=== PATIENT | male | born 1970 | race Caucasian/White ===

== ENCOUNTER 2018-01-03 09:01 | Emergency (ER) | payer OTHER ==
[2018-01-03 09:14] VITALS: BP 137/89; PULSE 120; TEMP 98.1; BMI 29.0
[2018-01-03] MEDS ORDERED: DIPHTH,PERTUSS(ACELL),TET 0.5 ML DISP.SYRIN IM ONE (09:19)
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
[2018-01-03 09:49] LABS: BASO % 0.6 % (0-2.0); EOS % 0.5 % (0-4.5); HEMOGLOBIN 16.3 GM/dL (11.7-16.9); LYMPH % 15.3 % (8-40); MCH 28.8 pg (25.7-33.7); MCHC 33.2 g/dl (32.0-35.9); MEAN CELL VOLUME 86.9 fl (80-96); MEAN PLT VOLUME 7.3 fl (7.5-11.1); MONO % 4.9 % (3.8-10.2); NEUT % 78.7 % (42.8-82.8); PLATELET COUNT 232 K/MM3 (134-434); RBC 5.64 M/mm3 (4.00-5.60); RDW 13.2 % (11.9-15.9); WHITE BLOOD COUNT 8.6 K/mm3 (4.0-10.0)
[2018-01-03 10:28] LABS: ALBUMIN 4.5 g/dl (3.4-5.0); ALK PHOS 56 U/L (45-117); ANION GAP 8 MMOL/L (8-16); BILIRUBIN,TOTAL 0.8 mg/dL (0.2-1); BLOOD UREA NITROGEN 17 mg/dL (7-18); CALCIUM 9.7 mg/dL (8.5-10.1); CHLORIDE 100 mmol/L (98-107); CHOLESTEROL 172 mg/dL (50-200); CO2 30 mmol/L (21-32); CREATININE 1.2 mg/dL (0.55-1.3); GAMMA GLUTAMYL TRANSPEPTIDASE 30 U/L (5-85); GLUCOSE,RANDOM 113 mg/dL (74-106); LDH 265 U/L (87-246); PHOSPHOROUS 1.6 mg/dL (2.5-4.9); POTASSIUM 3.4 mmol/L (3.5-5.1); SGOT/AST 26 U/L (15-37); SGPT/ALT 37 U/L (13-61); SODIUM 137 mmol/L (136-145); TOT PROT 7.6 g/dl (6.4-8.2); TRIGLYCERIDES 133 mg/dL (0-150); URIC ACID 6.4 mg/dL (2.6-7.2)
[2018-01-03] MEDS ORDERED: HIV POST EXPOSURE PROPHYLAXIS KIT NR ONE (10:40)
[2018-01-03] MEDS ORDERED: HIV POST EXPOSURE PROPHYLAXIS KIT PO ONE (11:33)
[2018-01-04 06:06] LABS: HBsAG SCREEN Negative (Negative)
== END 2018-01-03 11:38 | disposition home or self-care (01) ==
LOC: JERFT 09:01
PROC: 3E0234Z Introduction of Serum, Toxoid and Vaccine into Muscle, Percutaneous Approach (ICD-10-PCS; principal; 2018-01-03)
DX: S61.254A Open bite of right ring finger without damage to nail, initial encounter (principal); S10.81XA Abrasion of other specified part of neck, initial encounter; Y04.1XXA Assault by human bite, initial encounter; Y93.89 Activity, other specified; Y92.89 Other specified places as the place of occurrence of the external cause; Y99.0 Civilian activity done for income or pay; I10 Essential (primary) hypertension; E78.00 Pure hypercholesterolemia, unspecified; Z77.21 Contact with and (suspected) exposure to potentially hazardous body fluids; Y07.9 Unspecified perpetrator of maltreatment and neglect
CPT/HCPCS: 36415; 80053; 82465; 82977; 83615; 84100; 84478; 84550; 85025; 86317; 86706; 86803; 87340; 87389; 90715; 99282-25